=== PATIENT | male | born 1995 | race African-American/Black ===

== ENCOUNTER 2017-10-11 11:55 | Emergency (ER) | payer OTHER ==
[~2017-10-11] VITALS: Ht 182.9 cm; Wt 68.0 kg
[2017-10-11] MEDS ORDERED: CLARITIN-D 121 EAC1 PO (12:14)
[2017-10-11] MEDS ORDERED: TESSALON PERLE100 MG PO (12:14)
[2017-10-11] MEDS ORDERED: NAPROSYN500 MG PO (12:14)
== END 2017-10-11 12:25 | disposition home or self-care (01) ==
LOC: ER 11:55
DX: J06.9 Acute upper respiratory infection, unspecified (principal)

== ENCOUNTER 2017-10-13 10:26 | Emergency (ER) | payer OTHER ==
[~2017-10-13] VITALS: Ht 182.9 cm; Wt 68.0 kg
[~2017-10-13 10:26] MED LIST: CLARITIN-D 121 EAC1 PO; NAPROSYN500 MG PO; TESSALON PERLE100 MG PO
[2017-10-13] MEDS ORDERED: AMOXICILLIN 50500 MG PO (11:07)
[2017-10-13] MEDS ORDERED: PREDNISONE 20 M20 MG PO (11:07)
== END 2017-10-13 11:26 | disposition home or self-care (01) ==
LOC: ER 10:26
DX: J02.0 Streptococcal pharyngitis (principal)

== ENCOUNTER 2021-04-09 16:01 | Emergency (ER) | payer OTHER ==
[~2021-04-09] VITALS: Ht 182.9 cm; Wt 65.8 kg
[~2021-04-09 16:01] MED LIST changes: +AMOXICILLIN 50500 MG PO; +PREDNISONE 20 M20 MG PO
[2021-04-09 16:50] LABS: ABSOLUTE NEUTROPHILS 11.2 thou/uL (1.4-8.2); BASOPHILS 0.2 % (0.0-2.0); EOSINOPHILS 0.3 % (0.0-3.0); HEMATOCRIT 36.1 % (42.0-52.0); HEMOGLOBIN 12.8 gm/dL (14.0-18.0); LYMPHOCYTES 5.8 % (24.0-44.0); MCH 32.7 pg (26.0-34.0); MCHC 35.5 g/dL (28.0-37.0); MCV 92.3 fL (80.0-100.0); MONOCYTES 11.4 % (1.0-8.0); PLATELET COUNT 385 thou/uL (150-400); POLYS 82.3 % (36.0-66.0); RBC 3.91 mil/uL (4.50-6.00); RDW 13.3 % (10.5-14.5); WBC 13.7 thou/uL (4.0-11.0)
[2021-04-09 16:54] LABS: CALCIUM 9.5 mg/dL (8.5-10.1); CREATININE 0.8 mg/dL (0.7-1.3); POTASSIUM 3.4 mmol/L (3.5-5.1)
[2021-04-09 17:00] LABS: ALBUMIN 3.6 g/dL (3.4-5.0); TOTAL BILIRUBIN 1.3 mg/dL (0.2-1.0); TOTAL PROTEIN 7.4 g/dL (6.4-8.2)
[2021-04-09 19:55] LABS: URINE BLOOD TRACE (Negative); URINE CLARITY CLEAR; URINE COLOR YELLOW; URINE GLUCOSE-RANDOM* NEGATIVE (Negative); URINE KETONES TRACE (Negative); URINE LEUKOCYTES-REFLEX NEGATIVE (Negative); URINE NITRITE-REFLEX NEGATIVE (Negative); URINE PROTEIN (DIPSTICK) 2+ (Negative); URINE SPECIFIC GRAVITY <= 1.005 (1.005-1.035)
[2021-04-09 20:00] VITALS: BP 123/84
[2021-04-09 20:19] LABS: ICTOTEST (BILI CONFIRMATORY) Negative (Negative); URINE BILIRUBIN NEGATIVE (Negative)
[2021-04-09 20:20] LABS: SQUAMOUS None Seen /LPF (0-3)
[2021-04-09 20:21] LABS: BACTERIA-REFLEX None Seen /HPF (None Seen); URINE RBC 1-2 Rare /HPF (NONE SEEN); URINE WBC-REFLEX None Seen /HPF (0-5)
== END 2021-04-09 20:05 | disposition short-term general hospital (02) ==
LOC: ER 16:01
PROVIDERS: Emergency Medicine
DX: T79.7XXA Traumatic subcutaneous emphysema, initial encounter (principal); S16.1XXA Strain of muscle, fascia and tendon at neck level, initial encounter; S09.90XA Unspecified injury of head, initial encounter; S36.113A Laceration of liver, unspecified degree, initial encounter; S27.321A Contusion of lung, unilateral, initial encounter; Z20.822 Contact with and (suspected) exposure to COVID-19; Z79.899 Other long term (current) drug therapy; W22.19XA Striking against or struck by other automobile airbag, initial encounter; Y93.89 Activity, other specified; Y92.89 Other specified places as the place of occurrence of the external cause; Y99.8 Other external cause status

== ENCOUNTER 2021-06-23 14:06 | Emergency (ER) | payer OTHER ==
[~2021-06-23] VITALS: Ht 185.4 cm; Wt 65.8 kg
[2021-06-23] MEDS ORDERED: NEURONTIN 300M300 M2 PO (14:11)
[2021-06-23] MEDS ORDERED: METHOCARBAMOL750 MG PO (14:12)
[2021-06-23 15:05] VITALS: BP 117/84
== END 2021-06-23 15:05 | disposition home or self-care (01) ==
LOC: ER 14:06
DX: N63.20 Unspecified lump in the left breast, unspecified quadrant (principal); Z79.899 Other long term (current) drug therapy